=== PATIENT | female | born 1985 | race Caucasian/White ===

== ENCOUNTER → 2023-11-14 | Outpatient (CLI) | payer SELFPAY ==
--- NOTE | 2023-11-14 16:15 | US_ITS ---
STUDY: FIRST TRIMESTER OBSTETRICAL ULTRASOUND REASON FOR EXAM: Female, 37 years old viability and dates LMP: TECHNIQUE: Transvaginal TECHNICAL QUALITY: Adequate. PRIOR ULTRASOUND: None. FINDINGS: There is visualization of a single gestational sac in a normal intrauterine position. The mean sac diameter (MSD) measures 1.26 cm, indicating an estimated gestational age (EGA) of 6 weeks, 1 days. The gestational sac shape is within normal limits. There is a visualized yolk sac. The yolk sac measures 2.7 mm. The placenta is non-visualized. No pole is observed. The estimated gestation age (EGA) by LMP is 8 weeks, 4 days. The estimated date of delivery (ROBIN) by LMP is June 21, 2024. The estimated gestation age (EGA) by US is 6 weeks, 1 days. The estimated date of delivery (ROBIN) by US is July 08, 2024. The uterus measures 9 x 5.4 x 4.5 cm. There is no demonstrated uterine fibroid. The cervix is closed. The right ovary measures 2.5 x 2.5 x 1.5 cm. There is no right ovarian cyst. There is no visualized right adnexal mass or complex lesion. The left ovary measures 2.1 x 1.5 x 1.5 cm. There is no left ovarian cyst. There is no visualized left adnexal mass or complex lesion. There is no fluid in the cul de sac. US/Transvaginal w/Preg US IMPRESSION: Findings which may be consistent with very early intrauterine gestation but no pole observed at this time. No evidence for ectopic Recommend clinical correlation and follow-up studies to assess for interval changes Electronically Signed: Xavier Gutiérrez MD at 17:29 EST ,
[2023-11-14 18:02] LABS: hCG Titer Quant., Serum 17501 mIU/mL (1-3)
== END | disposition home or self-care (01) ==
PROVIDERS: Referring Provider Obstetrics & Gynecology; Visit Provider Obstetrics & Gynecology
DX: Z34.90 Encounter for supervision of normal pregnancy, unspecified, unspecified trimester (principal)
CPT/HCPCS: 36415; 76817; 84702

== ENCOUNTER → 2023-11-21 | Outpatient (CLI) | payer SELFPAY ==
--- NOTE | 2023-11-21 12:51 | US_ITS ---
INDICATION: dating/viability EXAMINATION: Ultrasound US OB Transvaginal TECHNIQUE: Transabdominal and transvaginal (for optimal evaluation of the adnexa) pelvic ultrasound was performed. Grayscale and color Doppler technique with M-mode imaging. COMPARISON: 11/14/2023 LMP: 09.15.2023 (PCOS confounds dating) Beta-hCG: Unknown FINDINGS: UTERUS: Normal in size measuring 9.1 x 4.7 x 4.3 cm. No uterine masses. Cervix is closed.. RIGHT OVARY: Measures 3.4 x 2.9 x 2.5 cm. Normal in appearance. LEFT OVARY: Not visualized. FREE FLUID: None. INTRAUTERINE GESTATIONAL SAC(s) (size/shape): Single. 2.30 cm corresponding to a gestational age of 7 weeks, 2 days. YOLK SAC: Identified POLE: Identified CRL 4.7 mm corresponding to a gestational age of 6 weeks, 3 days. ESTIMATED GESTATION AGE: 6 weeks, 6 days. HEART MOTION: 138 bpm. PLACENTA: Not visualized due to age. SUBCHORIONIC HEMORRHAGE: None. AMNIOTIC FLUID: Qualitatively normal. US/Transvaginal w/Preg US IMPRESSION: * Single live intrauterine . * Estimated gestational age is 6 weeks, 6 days. * No perigestational hemorrhage. Electronically Signed: Robi Silverman MD at 6:19 EST ,
== END | disposition home or self-care (01) ==
PROVIDERS: Referring Provider Obstetrics & Gynecology; Visit Provider Obstetrics & Gynecology
DX: Z34.90 Encounter for supervision of normal pregnancy, unspecified, unspecified trimester (principal)
CPT/HCPCS: 76817

== ENCOUNTER → 2023-12-06 | Outpatient (CLI) | payer OTHER, SELFPAY ==
[2023-12-10 04:07] LABS: Chlamydia By Nucleic Acid AMP Negative (Negative); Gonococcus By Nucleic Acid AMP Negative (Negative)
== END | disposition home or self-care (01) ==
PROVIDERS: Referring Provider Registered Nurse; Visit Provider Registered Nurse
DX: Z34.90 Encounter for supervision of normal pregnancy, unspecified, unspecified trimester (principal)
CPT/HCPCS: 87086; 87088; 87491; 87591

== ENCOUNTER → 2024-01-02 | Outpatient (CLI) | payer OTHER, SELFPAY ==
[2024-01-02 15:41] LABS: Absolute Lymphocyte Count 1.74 X10^3/uL (0.83-4.51); Absolute Neutrophil Count 5.7 X10^3/uL (2.0-7.7); Basophil# 0.03 X10^3/uL; Basophil% 0.4 % (0-1); Eosinophils% 1.2 % (0-5); Hematocrit 39.4 % (37-47); Hemoglobin 12.6 g/dL (12.0-15.0); Lymphocyte # 1.74 X10^3/ul (0.83-4.51); Lymphocyte % 20.9 % (19-41); Mean Corpuscular Hgb 28.3 pg (27.0-32.0); Mean Corpuscular Volume 88.3 fL (81-99); Mean Platelet Vol. 10.1 fl (6.2-12.0); Monocyte% 9.6 % (0-10); NRBC Flagged by Analyzer 0 % (0-5); Neutrophil # 5.65 X10^3/uL (2.7-7.7); Neutrophil % 67.7 % (47-70); Platelet Count 272 K/mm3 (150-450); RBC Distribution Width CV 12.9 % (11.6-14.6); RBC Distribution Width SD 41.3 fl (35.1-43.9); Red Blood Count 4.46 M/mm3 (4.2-5.4); White Blood Count 8.3 K/mm3 (4.4-11.0)
[2024-01-02 17:13] LABS: POSITIVE COUNT NO; POSITIVE DIFFERENTIAL NO; POSITIVE MORPHOLOGY NO
[2024-01-02 17:55] LABS: Hemoglobin A1c 5.1 % (3.8-5.6)
[2024-01-02 17:58] LABS: HIV - WCH Non-Reactive (Nonreactive); Hepatitis B Surface Antigen Non-Reactive (Nonreactive); Hepatitis C Antibody Non-Reactive (Nonreactive); Rubella IgG Reactive (Nonreactive); Syphilis Antibodies Non-reactive
== END | disposition home or self-care (01) ==
LOC: LAB 14:11
PROVIDERS: Referring Provider Registered Nurse; Visit Provider Registered Nurse
DX: Z34.90 Encounter for supervision of normal pregnancy, unspecified, unspecified trimester (principal)
CPT/HCPCS: 83036; 85025; 86703; 86762; 86780; 86803; 86850; 86900; 86901; 87340

== ENCOUNTER → 2024-01-29 | Outpatient (CLI) | payer MEDICAID, SELFPAY | END | disposition home or self-care (01) | PROVIDERS: Referring Provider Nurse Practitioner Women's Health; Visit Provider Nurse Practitioner Women's Health | DX: Z36.9 Encounter for antenatal screening, unspecified (principal) | CPT/HCPCS: 36415 ==

== ENCOUNTER 2024-04-19 16:24 | Emergency (ER) | payer MEDICAID, SELFPAY ==
[2024-04-19 16:24] VITALS: BP 120/79; PULSE 98; RESP 18; TEMP 36.1; O2SAT 99; BMI 42.0
--- NOTE | 2024-04-19 16:44 | ED.RN ---
Discussed sx with OB charge before checking pt into ER. Was told pt had to be seen here first.
--- NOTE | 2024-04-19 17:06 | ED.VIS.GI ---
HPI HPI - GI History of Present Illness Chief Complaint: Abd Pain Informant: patient and spouse/S.O. Abdominal Pain/Flank Pain Onset: Today Timing: Continuous Quality: Cramping Location: Epigastric and LUQ Current Severity: Moderate Maximum Severity: Severe Worsened by: Nothing Nausea/Vomiting/Emesis GI Symptom: Negative for Nausea or Vomiting Diarrhea/Melena/Hematochezia GI Symptom: Negative for Diarrhea, Melena or Hematochezia Associated Symptoms Associated Symptoms: Positive for Frequency (since ); Negative for Dysuria or Hematuria Narrative Narrative: Patient is 28 weeks , she woke up today having some crampy pain in her left upper quadrant below the ribs, it was worse before coming here where she was at work standing, doubled over because of the pain. No nausea or vomiting. Did not radiate into her back. No lower abdominal pain, vaginal bleeding or leakage. States pain was fairly localized. No new urinary symptoms but states that she remembered getting urinary tract infections as a child and for some reason this feels similar although the location may be different she is not sure. She has had a cough for a month or 2 but nonproductive without fevers or chills, she denies any dyspnea. [facility] Medical History Renal stone Home Medications ?Medication ?Instructions ?Recorded ?Last Taken ?Type multivit-min no.71-iron fum 28 cap PO 11/29/23 Unknown History mg-folate no.1 1 mg-dha 300 mg capsule (PNV-Reydon) ondansetron 4 mg disintegrating 4 mg PO Q4H PRN nausea and 01/02/24 Unknown Rx tablet vomiting #60 tabs famotidine 20 mg tablet (Pepcid) 20 mg PO BID #60 tabs 02/28/24 Unknown Rx Allergy/AdvReac Type Severity Reaction Status Date / Time Sulfa (Sulfonamide Allergy Intermediate Shortness Verified 04/19/24 16:24 Antibiotics) of breath Family History Grandfather Cancer maternal pancreatic cancer CVA (cerebral vascular accident) Paternal Grandmother Cancer maternal lung CVA (cerebral vascular accident) Paternal Father Brain tumor (benign) Sister Family history of recurrent miscarriage 7 miscarriages-Lupus Surgical History H/O lithotripsy History of cholecystectomy [place] teeth extracted Social History adopted: No household members: children current occupational status: employed current occupation: Seamstress current occupational exposures/hazards: No pets and animals: No history of recent travel: No sexually active: Yes Smoking Status: Never smoker alcohol intake: current alcohol intake frequency: a few times a month details: Not while substance use type: does not use well-balanced diet: about half the time caffeine: No eating out: rarely or never during the past year weight has: remained stable what type of physical activity do you participate in: none areli/episcopal: Lutheran seatbelt use: always do you feel safe at home: Yes additional social history: BF/FOB [place] work ROS ROS ED Constitutional Constitutional ED: Denies chills or fever(s) Eyes Eyes: Denies change in vision or diplopia ENT ENT ED: Denies rhinorrhea or sore throat Cardiovascular Cardiovascular: Denies chest pain or palpitations Respiratory/Chest Respiratory/Chest: Reports cough; Denies dyspnea or sputum Gastrointestinal Gastrointestinal: Reports abdominal pain; Denies diarrhea, nausea or vomiting Genitourinary Genitourinary ED: Reports urinary frequency; Denies dysuria or hematuria Musculoskeletal Musculoskeletal: Denies back pain or neck pain Integumentary Denies abscess or rash Neurologic Neurologic: Denies headache(s), paresthesias or weakness Psychiatric Psychiatric: Denies suicidal thoughts EXAM Physical Exam Const Vital Signs: 04/19/24 16:24 Temperature 97 F L Temperature Source Temporal Pulse Rate 98 Respiratory Rate 18 Blood Pressure 120/79 Blood Pressure Mean 92 Pulse Ox 99 Oxygen Delivery Method Room Air Positive well nourished and well developed General Appearance ED: well developed and NAD HEENT Reports moist mucous membranes normocephalic and atraumatic Eyes PERRL and EOMs intact bilaterally Neck full ROM and supple Resp normal respiratory effort and clear to auscultation bilaterally Cardio regular rate, regular rhythm and no murmurs GI GI Narrative: Distended above the umbilicus consistent with her trimester . Moderately tender with fairly superficial palpation in the left upper quadrant but not laterally where she is nontender. Also mildly tender in the epigastrium. No other areas of tenderness. Auscultation: normoactive bowel sounds Palpation: soft Back/Spine General Back: CVA tenderness left (Mild) and other FROM Extremity normal to inspection General Extremety ED: Negative for edema, pulses abnormal or tenderness General Extremity: Negative for edema or pulses abnormal Neuro oriented x3, CN's II-XII intact bilaterally and no sensory deficits noted Sensorium / Orientation: awake and alert Motor Exam: strength 5/5 throughout Skin no rashes or lesions noted and no wounds MDM MDM MDM Narrative Medical decision making narrative: Differential includes colonic spasms but she had a bowel movement today and it did not feel better afterwards and that was probably not it, stomach/gastritis, pancreatitis, left lower lobe pneumonia, muscle spasms, or worse, uterine discomfort. However it is pretty focal for the latter. 2 view chest x-ray my interpretation shows no pneumonia radiology in agreement, since she had a cough we did that. The labs are normal. No elevated liver enzymes or signs of pancreatitis. Urine shows some signs of infection but nothing major, and more importantly after giving her Mylanta as she felt better very quickly. Therefore going to send a culture of the urine but I do not think that is the issue here, I think it was just gastritis. She is already taking Pepcid twice daily, I advised her to continue that I do not think I would change any of her medicines. She comfortable with that plan. Nursing obtained heart tones and patient is feeling good movement. She has already had prior cholecystectomy. Lab Data Attestation: I reviewed the patient's lab results. Labs: Laboratory Results - last 24 hr 04/19/24 04/19/24 16:38 17:23 WBC 9.6 RBC 3.58 L Hgb 10.4 L Hct 31.9 L MCV 89.1 MCH 29.1 MCHC 32.6 RDW Std Deviation 45.3 H RDW Coeff of Stevie 14.1 Plt Count 224 MPV 10.0 Immature Gran % (Auto) 0.500 Neut % (Auto) 76.5 H Lymph % (Auto) 14.8 L [place] % (Auto) 7.2 Eos % (Auto) 0.8 Baso % (Auto) 0.2 Absolute Neuts (auto) 7.3 Absolute Lymphs (auto) 1.41 Nucleated RBC % 0 Sodium 139 Potassium 3.4 L Chloride 111 H Carbon Dioxide 21.0 Anion Gap 7 BUN 7 Creatinine 0.59 Estim Creat Clear Calc 140.91 Est GFR (MDRD) Af Amer 147 Est GFR (MDRD) Non-Af 121 BUN/Creatinine Ratio 11.9 Glucose 97 Calcium 8.8 Total Bilirubin 0.20 AST 16 ALT 28 Alkaline Phosphatase 82 Total Protein 6.3 L Albumin 2.4 L Globulin 3.9 Albumin/Globulin Ratio 0.6 L Lipase 71 Urine Color Yellow Urine Clarity Clear Urine pH 6.0 Ur Specific [place] 1.025 Urine Protein 15 H Urine Glucose (UA) Normal Urine Ketones 150 A* Urine Occult Blood Negative Urine Nitrite Negative Urine Bilirubin Negative Urine Urobilinogen Normal Ur Leukocyte Esterase 100 H Urine RBC 0 SEEN Urine WBC 5-10 SEEN Ur Squamous Epith Cells 5-10 SEEN Urine Bacteria 1+ Urine Mucus 0 SEEN Radiography Diagnostic Testing: Clinical Impression(s) from Imaging Studies Chest X-Ray 04/19/24 17:28 IMPRESSION: No radiographic evidence of acute cardiopulmonary disease. Electronically Signed: Didier Machado MD at 17:52 EDT Reading Location ID and State: [facility] / [place] Tel , Service support , Discharge Plan Triage Chief Complaint: Abd Pain ED Provider: Camilo Das Dx/Rx/DC Orders Clinical Impression: Acute gastritis without bleeding, Third trimester Instructions: ED Gastritis (Adult) Prescriptions: No Action PNV-Reydon 28-1-300 mg capsule PO ondansetron 4 mg tablet,disintegrating 4 mg PO Q4H PRN (Reason: nausea and vomiting) Qty: 60 2RF famotidine [Pepcid] 20 mg tablet 20 mg PO BID Qty: 60 6RF Primary Care Provider: Care Physician,No Primary Referrals: Doctor,Your [Non-Staff] - 3-5 Days if not improving (your OB) Print Language: [place] Disposition Disposition: Home, Self Care
[2024-04-19] MEDS: Mag /Aluminum/Simeth WCH UDC 30 ML ORAL.SUSP PO (17:17)
--- NOTE | 2024-04-19 17:28 | RAD_ITS ---
INDICATION: cough, LUQ pain; EXAMINATION/TECHNIQUE: X-RAY - XR Chest 2 Views COMPARISON: None. FINDINGS: LINES/DEVICES: None. LUNGS: No consolidation, edema or effusion. No pneumothorax. MEDIASTINUM AND CARDIOVASCULAR STRUCTURES: Cardiac silhouette not enlarged. Central airways and mediastinal contour are unremarkable. BONES AND SOFT TISSUES: Unremarkable. RAD/Chest PA and Lateral IMPRESSION: No radiographic evidence of acute cardiopulmonary disease. Electronically Signed: Didier Machado MD at 17:52 EDT ,
[2024-04-19 17:30] LABS: Mucous, Urine 0 SEEN /hpf (<or=2+)
[2024-04-19 17:32] LABS: Absolute Lymphocyte Count 1.41 X10^3/uL (0.83-4.51); Absolute Neutrophil Count 7.3 X10^3/uL (2.0-7.7); Basophil# 0.02 X10^3/uL; Basophil% 0.2 % (0-1); Eosinophil# 0.08 X10^3/uL; Eosinophils% 0.8 % (0-5); Hematocrit 31.9 % (37-47); Hemoglobin 10.4 g/dL (12.0-15.0); Lymphocyte # 1.41 X10^3/ul (0.83-4.51); Lymphocyte % 14.8 % (19-41); Mean Corp Hgb Conc 32.6 g/dL (32-36); Mean Corpuscular Hgb 29.1 pg (27.0-32.0); Mean Corpuscular Volume 89.1 fL (81-99); Monocyte# 0.69 X10^3/uL; Monocyte% 7.2 % (0-10); NRBC Flagged by Analyzer 0 % (0-5); Neutrophil % 76.5 % (47-70); Platelet Count 224 K/mm3 (150-450); RBC Distribution Width CV 14.1 % (11.6-14.6); RBC Distribution Width SD 45.3 fl (35.1-43.9); Red Blood Count 3.58 M/mm3 (4.2-5.4); White Blood Count 9.6 K/mm3 (4.4-11.0)
[2024-04-19 17:36] LABS: Color, Urine Yellow (Yellow); Glucose, Dipstick Normal (Normal); Leukocyte Esterase-Dipstick 100 /ul (Negative); Nitrite-Dipstick Negative (Negative); Occult Blood-Urine Negative /ul (Negative); Protein-Dipstick 15 mg/dl (Negative); Specific Gravity, Urine 1.025 (1.002-1.030); Urine Bilirubin Dipstick Negative (Negative); Urine Clarity Clear (Clear); Urine Urobilinogen Normal (Normal)
[2024-04-19 17:48] LABS: Ketone-Dipstick 150 mg/dl (Negative)
[2024-04-19 17:50] LABS: Bacteria 1+ /hpf (None Seen); Red Blood Cells-Urine 0 SEEN /hpf (0-5); Squamous Epithelial Cells - UA 5-10 SEEN /hpf (5-10); White Blood Cells 5-10 SEEN /hpf (0-5)
[2024-04-19 17:56] LABS: ALB/GLOB Ratio 0.6 RATIO (0.9-2.4); AST(SGOT) 16 U/L (15-37); Alanine Aminotransfer ALT/SGPT 28 U/L (13-56); Albumin, Serum 2.4 g/dL (3.2-5.0); Alkaline Phosphatase 82 U/L (45-117); Anion Gap 7 (5-15); BUN 7 mg/dL (7-18); BUN/Creat Ratio 11.9 RATIO (10-20); Calcium,Total 8.8 mg/dL (8.5-10.1); Chloride 111 mmol/L (98-107); Creatinine, Serum 0.59 mg/dL (0.55-1.02); EST Glomerular Filtration Rate 121 mL/min (>60); Est Glom Filt Rate - Afr Amer 147 mL/min (>60); Estimated Creatinine Clearance 140.91 ml/min; Globulin 3.9 g/dL (2.2-4.2); Glucose 97 mg/dL (74-106); Lipase 71 U/L (13-75); Potassium 3.4 mmol/L (3.5-5.1); Protein, Total 6.3 g/dL (6.4-8.2); Sodium Level 139 mmol/L (136-145)
[2024-04-19 18:24] VITALS: BP 107/73; PULSE 83; RESP 16; O2SAT 98
[2024-04-19 18:54] VITALS: BP 107/73; PULSE 83; RESP 16; TEMP 36.2; O2SAT 98
== END 2024-04-19 18:56 | disposition home or self-care (01) ==
PROVIDERS: Emergency Provider Emergency Medicine; Visit Provider Emergency Medicine
DX: O99.613 Diseases of the digestive system complicating pregnancy, third trimester (principal); K29.00 Acute gastritis without bleeding; Z3A.28 28 weeks gestation of pregnancy
CPT/HCPCS: 71046; 80053; 81001; 83690; 85025; 99282; A4216

== ENCOUNTER → 2024-04-20 | Outpatient (CLI) | payer MEDICAID, SELFPAY ==
[2024-04-20 14:52] LABS: Absolute Lymphocyte Count 1.06 X10^3/uL (0.83-4.51); Absolute Neutrophil Count 7.1 X10^3/uL (2.0-7.7); Basophil# 0.02 X10^3/uL; Basophil% 0.2 % (0-1); Eosinophil# 0.06 X10^3/uL; Eosinophils% 0.7 % (0-5); Hematocrit 32.3 % (37-47); Hemoglobin 10.4 g/dL (12.0-15.0); Lymphocyte # 1.06 X10^3/ul (0.83-4.51); Mean Corp Hgb Conc 32.2 g/dL (32-36); Mean Corpuscular Hgb 28.7 pg (27.0-32.0); Mean Corpuscular Volume 89.2 fL (81-99); Mean Platelet Vol. 10.1 fl (6.2-12.0); Monocyte# 0.57 X10^3/uL; Monocyte% 6.5 % (0-10); NRBC Flagged by Analyzer 0 % (0-5); Neutrophil # 7.05 X10^3/uL (2.7-7.7); Neutrophil % 79.8 % (47-70); Platelet Count 239 K/mm3 (150-450); RBC Distribution Width CV 14.2 % (11.6-14.6); Red Blood Count 3.62 M/mm3 (4.2-5.4); White Blood Count 8.8 K/mm3 (4.4-11.0)
[2024-04-20 15:21] LABS: Glucose Challenge Gest 1H 50g 93 mg/dL (70-140)
[2024-04-20 16:03] LABS: HIV - WCH Non-Reactive (Nonreactive); Syphilis Antibodies Non-reactive
== END | disposition home or self-care (01) ==
PROVIDERS: Referring Provider Advanced Practice Midwife; Visit Provider Advanced Practice Midwife
DX: O09.92 Supervision of high risk pregnancy, unspecified, second trimester (principal); Z13.1 Encounter for screening for diabetes mellitus; Z3A.00 Weeks of gestation of pregnancy not specified
CPT/HCPCS: 36415; 82950; 85025; 86703; 86780

== ENCOUNTER 2024-05-18 14:10 | Outpatient (CLI) | payer MEDICAID, SELFPAY ==
[2024-05-18 14:28] VITALS: BP 132/85; PULSE 79
[2024-05-18 14:29] VITALS: RESP 18; TEMP 36.4
[2024-05-18 14:38] VITALS: BMI 42.0
[2024-05-18] MEDS: Lactated Ringers 1,000 ML 999 ML IV (15:05)
[2024-05-18 15:25] LABS: Color, Urine Yellow (Yellow); Glucose, Dipstick Normal (Normal); Ketone-Dipstick Negative (Negative); Leukocyte Esterase-Dipstick 100 /ul (Negative); Nitrite-Dipstick Negative (Negative); Occult Blood-Urine Negative /ul (Negative); Protein-Dipstick Negative (Negative); Specific Gravity, Urine 1.015 (1.002-1.030); Urine Bilirubin Dipstick Negative (Negative); Urine Clarity Sl. Cloudy (Clear); Urine Urobilinogen Normal (Normal)
[2024-05-18] MEDS: Betamethasone/Betamethasone 30 MG/5 ML Vial 12 MG IM (15:53)
[2024-05-18] MEDS: Lactated Ringers 1,000 ML 200 ML IV (16:00)
--- NOTE | 2024-05-18 16:47 | OB.TRI.PN_ITS ---
Progress Notes Date of Service: 05/18/24 Progress Note: Patient presents for triage evaluation secondary to uterine contractions FHT: 140 Moderate variability reactive no decelerations category I tracing [place]: 2-4 minutes Contractions Assessment and plan: no cervical change, UA negative, Reactive NST, reassuring maternal and status, Celestone given. Discussed with Dr Webster and decision to start Procardia 10mg PO q 6 hours. patient discharged to home to follow-up saturday in the office. Pelvic rest until then. See problem list details for additional plan information. Laboratory Studies: Laboratory Tests 05/18/24 Range/Units 15:05 Urine Color Yellow (Yellow) Urine Clarity Sl. Cloudy (Clear) Urine pH 8.0 (5.0 - 8.0) Ur Specific [place] 1.015 (1.002-1.030) Urine Protein Negative (Negative) mg/dl Urine Glucose (UA) Normal (Normal) mg/dl Urine Ketones Negative (Negative) mg/dl Urine Occult Blood Negative (Negative) /ul Urine Nitrite Negative (Negative) Urine Bilirubin Negative (Negative) mg/dL Urine Urobilinogen Normal (Normal) mg/dl Ur Leukocyte Esterase 100 H (Negative) /ul Charges/Coding Multi Select Codes Visit Charges Office Visit/Consults: 56994 OV L3 Est 20min Urinary/Genital Urinary/Genital CPT Codes: 06477-61 non-stress test Interp Assessment & Plan (1) Uterine contractions at greater than 20 weeks of gestation: COMMENT: no cervical change, Celestone, Procardia 10mg q6 hrs, follow up sat. PLAN: celestone x 2 no cervical change Procardia 10 mg q 6 hours Follow up saturday in office (2) Anemia affecting : COMMENT: recheck at 32 weeks and start po iron (3) Hypersensitivity disorder: QUALIFIERS: Encounter type: sequela Qualified Code(s): T78.40XS - Allergy, unspecified, sequela COMMENT: pain sensation with any abdominal touch. Difficult for her to have FHT checks (4) Obesity affecting : QUALIFIERS: Trimester: second trimester Obesity type affecting : unspecified obesity Qualified Code(s): O99.212 - Obesity complicating , second trimester COMMENT: growth at 36 weeks Weekly NSTat 34 wk healthy weight. early hbga1c with nob labs- NEGATIVE (5) History of PCOS: (6) ADHD: QUALIFIERS: Attention deficit-hyperactivity disorder type: unspecified Qualified Code(s): F90.9 - Attention-deficit hyperactivity disorder, unspecified type COMMENT: non medicated. (7) Anxiety: COMMENT: controlled. (8) Advanced maternal age (AMA) in : COMMENT: low risk ntd, carrier and genetic screening. (9) Supervision of high-risk : QUALIFIERS: Trimester: second trimester Qualified Code(s): O09.92 - Supervision of high risk , unspecified, second trimester COMMENT: PRR , ROBIN 07/10/[address] [facility]/LAURA [place] (10) : QUALIFIERS: Weeks of gestation: 32 weeks Qualified Code(s): Z3A.32 - 32 weeks gestation of COMMENT: NIPT low risk, carrier neg. , AFP:negative. nl anatomy needs fu views
[2024-05-18] MEDS: NIFEdipine 10 MG Capsule PO (17:03)
[2024-05-18 17:34] VITALS: BP 115/75; PULSE 90; RESP 18
== END 2024-05-18 17:50 | disposition home or self-care (01) ==
LOC: WPOUT 14:18 → WP 14:19
PROVIDERS: Referring Provider Advanced Practice Midwife; Visit Provider Advanced Practice Midwife
DX: O47.03 False labor before 37 completed weeks of gestation, third trimester (principal); Z3A.32 32 weeks gestation of pregnancy; O99.213 Obesity complicating pregnancy, third trimester; O09.93 Supervision of high risk pregnancy, unspecified, third trimester; O99.013 Anemia complicating pregnancy, third trimester
CPT/HCPCS: 96360; 59025; 59050; 81002; 87086; 87088; 96372; 99221; J7120; G0378; J0702

== ENCOUNTER 2024-05-19 14:57 | Outpatient (CLI) | payer MEDICAID, SELFPAY ==
[2024-05-19 15:12] VITALS: BMI 42.1
[2024-05-19] MEDS: Betamethasone/Betamethasone 30 MG/5 ML Vial 12 MG IM (15:26)
== END 2024-05-19 15:30 | disposition home or self-care (01) ==
LOC: WPOUT 14:59 → WP 15:00
PROVIDERS: Referring Provider Obstetrics & Gynecology; Visit Provider Obstetrics & Gynecology
DX: O47.03 False labor before 37 completed weeks of gestation, third trimester (principal); O99.013 Anemia complicating pregnancy, third trimester; O09.93 Supervision of high risk pregnancy, unspecified, third trimester; O99.213 Obesity complicating pregnancy, third trimester; Z3A.32 32 weeks gestation of pregnancy
CPT/HCPCS: 96372; 99221; G0378; J0702

== ENCOUNTER → 2024-06-15 | Outpatient (CLI) | payer MEDICAID, SELFPAY | END | disposition home or self-care (01) | LOC: LABSPEC 12:01 | PROVIDERS: Referring Provider Obstetrics & Gynecology; Visit Provider Obstetrics & Gynecology | DX: O09.92 Supervision of high risk pregnancy, unspecified, second trimester (principal); Z3A.00 Weeks of gestation of pregnancy not specified | CPT/HCPCS: 87081 ==

== ENCOUNTER 2024-06-19 06:30 | Outpatient (CLI) | payer MEDICAID, SELFPAY ==
[2024-06-19 06:40] VITALS: BMI 43.0
[2024-06-19] MEDS: Lactated Ringers 1,000 ML 125 ML IV (06:45)
[2024-06-19 06:51] VITALS: BP 119/81; PULSE 86; RESP 16; TEMP 36.2; O2SAT 97
[2024-06-19 07:16] LABS: Absolute Lymphocyte Count 1.65 X10^3/uL (0.83-4.51); Absolute Neutrophil Count 5.9 X10^3/uL (2.0-7.7); Basophil# 0.01 X10^3/uL; Basophil% 0.1 % (0-1); Eosinophil# 0.11 X10^3/uL; Eosinophils% 1.3 % (0-5); Hematocrit 31.9 % (37-47); Hemoglobin 10.4 g/dL (12.0-15.0); Lymphocyte # 1.65 X10^3/ul (0.83-4.51); Lymphocyte % 19.4 % (19-41); Mean Corp Hgb Conc 32.6 g/dL (32-36); Mean Corpuscular Hgb 28.9 pg (27.0-32.0); Mean Corpuscular Volume 88.6 fL (81-99); Mean Platelet Vol. 10.3 fl (6.2-12.0); Monocyte# 0.85 X10^3/uL; NRBC Flagged by Analyzer 0 % (0-5); Neutrophil # 5.85 X10^3/uL (2.7-7.7); Neutrophil % 68.8 % (47-70); Platelet Count 207 K/mm3 (150-450); RBC Distribution Width CV 13.9 % (11.6-14.6); RBC Distribution Width SD 44.3 fl (35.1-43.9); White Blood Count 8.5 K/mm3 (4.4-11.0)
--- NOTE | 2024-06-19 07:51 | OB.TRI.HP_ITS ---
HPI - General HPI Narrative JM OSEGUERA, is a 38 y/o @ 37 weeks who presents to L&D for an ECV. She is obese and advance maternal age. Prior to beginning the procedure the risks of distress, placental abruption, and need for urgent section was discussed. A consent form was signed. pre-procedure ultrasound: sho 13, head at the right upper quadrant back facing up and to the left. buttock to the midline, limbs to the right mid quadrant. Maternal Data Information ROBIN Calculator Estimated Delivery Date Method Current WG Current Estimate 07/10/24 Ultrasound #1 37w 0d PFSH PFSH Medical History Renal stone Home Medications ?Medication ?Instructions ?Recorded ?Last Taken ?Type multivit-min no.71-iron fum 28 1 cap PO see provider 11/29/23 06/18/24 06:00 History mg-folate no.1 1 mg-dha 300 mg capsule (PNV-[place]) ondansetron 4 mg disintegrating 4 mg PO Q4H PRN nausea and 01/02/24 Unknown Rx tablet vomiting #60 tabs famotidine 20 mg tablet (Pepcid) 20 mg PO BID #60 tabs 02/28/24 06/18/24 06:00 Rx PNV 153-FA 400 mcg-om3 35 mg-dha 2 tab PO DAILY 05/18/24 05/18/24 08:00 History 25 mg-epa 5 mg-fish oil chew 2 tabs tablet ( Gummies) ferrous sulfate 325 mg (65 mg 325 mg PO BID 05/18/24 06/19/24 06:00 History iron) tablet (Bárbara-Time) nifedipine 10 mg capsule 10 mg PO Q6H 10 days #40 caps 05/18/24 Unknown Rx Allergy/AdvReac Type Severity Reaction Status Date / Time Sulfa (Sulfonamide Allergy Intermediate Shortness Verified 06/19/24 06:47 Antibiotics) of breath Family History Grandfather Cancer maternal pancreatic cancer CVA (cerebral vascular accident) Paternal Grandmother Cancer maternal lung CVA (cerebral vascular accident) Paternal Father Brain tumor (benign) Sister Family history of recurrent miscarriage 7 miscarriages-Lupus Surgical History H/O lithotripsy History of cholecystectomy [place] teeth extracted Social History adopted: No household members: children current occupational status: employed current occupation: Seamstress current occupational exposures/hazards: No pets and animals: No history of recent travel: No sexually active: Yes Smoking Status: Never smoker alcohol intake: current alcohol intake frequency: a few times a month details: Not while substance use type: does not use well-balanced diet: about half the time caffeine: No eating out: rarely or never during the past year weight has: remained stable what type of physical activity do you participate in: none areli/hinduism: Rastafari seatbelt use: always do you feel safe at home: Yes additional social history: BF/FOB [place]- [place] work History 1 Elective abortions Hx Para 0 Spontaneous abortions Hx # Term Pregnancies Ectopic pregnancies Hx # Pregnancies Multiple births # of living children Visit Details Expected Delivery Route/Plan Labor Preferences- CB/BF classes: declined, watched on [employer] labor support person: [] labor intervention preferences: open to anything, pain management options preferred: epidural, open to massage and guided breathing cut cord/dad catch: yes maybe catch : yes PP control planned: [] discussed possible routes of delivery and associated risks: [] special requests: [] Plans Covid status: [] Flu vaccine: [] Tdap vaccine: given Rhogam: na LARC form signed: declined movement and labor precautions reviewed. Problem list reviewed and updated with the most current plan of care details and appropriate orders placed. Relevant counseling for the gestational age provided. Continue routine care and follow up unless otherwise noted in visit notes/problem list details OB Flowsheet Initial Weight: 214 lb Date -?-?-?-?-?-?-?-?-?-?-?-?- EGA Weight BP Urine Prot -?-?-?-?-?-?-?-?-?-?-?-?- Glucose FHR FuHt Pres Dilation -?-?-?-?-?-?-?-?-?-?-?-?- Effaced St Visit Note 12/06/23 -?-?-?-?-?-?-?-?-?-?-?-?- 9w 0d 214 lb 2 oz (+2 oz) 113/87 -?-?-?-?-?-?-?-?-?-?-?-?- 160 -?-?-?-?-?-?-?-?-?-?-?-?- LC-CRL con with LMP. desires carrier/genetic screening. LC- formal 1st trimester us. crl con with this today. desires carrier/genetic screening. 01/02/24 -?-?-?-?-?-?-?-?-?-?-?-?- 12w 6d 213 lb 6 oz (-10 oz) 106/72 Negative -?-?-?-?-?-?-?-?-?-?-?-?- Negative 160 -?-?-?-?-?-?-?-?-?-?-?-?- MH-No VB. Сергей wu, bassem sent. Br US confirm live IUP, FHT. 01/29/24 -?-?-?-?-?-?-?-?-?-?-?-?- 16w 5d 214 lb 2 oz (+2 oz) 112/70 -?-?-?-?-?-?-?-?-?-?-?-?- 157 -?-?-?-?-?-?-?-?-?-?-?-?- MH-NO VB. Nausea imporve. Still w/heartburn. Meds reviewed. AFP today 02/28/24 -?-?-?-?-?-?-?-?-?-?-?-?- 21w 0d 216 lb 6 oz (+2 lb 6 oz) 113/76 Negative -?-?-?-?-?-?-?-?-?-?-?-?- Negative 150 -?-?-?-?-?-?-?-?-?-?-?-?- SM- no vb lof go od fm no regular ctx discussed some congestion in the middle of the night, ordered pepcid for heartburn 03/30/24 -?-?-?-?-?-?-?-?-?-?-?-?- 25w 3d 220 lb (+6 lb) 109/76 Negative -?-?-?-?-?-?-?-?-?-?-?-?- Negative 157 26 -?-?-?-?-?-?-?-?-?-?-?-?- KW- no vb/lof/ct x. good fm. 28 week labs discussed. 04/20/24 -?-?-?-?-?-?-?-?-?-?-?-?- 28w 3d 219 lb 8 oz (+5 lb 8 oz) 111/74 Negative -?-?-?-?-?-?-?-?-?-?-?-?- Negative 150 29 -?-?-?-?-?-?-?-?-?-?-?-?- JV- glucola done today. results pending. Tdap today. mild anemia. recommend OTC slow FE 05/04/24 -?-?-?-?-?-?-?-?-?-?-?-?- 30w 3d 219 lb (+5 lb) 112/74 Negative -?-?-?-?-?-?-?-?-?-?-?-?- Negative 130 32 -?-?-?-?-?-?-?-?-?-?-?-?- SM- no vb lof go od fm no regular ctx 05/18/24 -?-?-?-?-?-?-?-?-?-?-?-?- 32w 3d 223 lb 8 oz (+9 lb 8 oz) Negative -?-?-?-?-?-?-?-?-?-?-?-?- Negative 140 34 0 -?-?-?-?-?-?-?-?-?-?-?-?- KW- no vb/lof. c deven into office tearful and complaining of abd pain. NST shows regular ctx. to WP to rule out labor 05/22/24 -?-?-?-?-?-?-?-?-?-?-?-?- 33w 0d 221 lb (+7 lb) 106/76 Negative -?-?-?-?-?-?-?-?-?-?-?-?- Negative 140 34 -?-?-?-?-?-?-?-?-?-?-?-?- SM- no vb lof go od fm no regualr ctx 06/01/24 -?-?-?-?-?-?-?-?-?-?-?-?- 34w 3d 221 lb (+7 lb) 109/74 -?-?-?-?-?-?-?-?-?-?-?-?- 130 34 0 -?-?-?-?-?-?-?-?-?-?-?-?- JV- nst reactive . had 4 contractions but did not feel them. PTL precautions discussed. LAURA has diarrhea for over a week. will see GI this week and is being care for by his mother only to limit contact with him. JV- nst reactive. had 4 cont ractions but did not feel them. PTL precautions discussed. FOKumar has diarrhea for over a week. will see GI this week and is being care for by his mother only to limit contact with him. discussed possible tubal at delivery. title 19 today. 06/08/24 -?-?-?-?-?-?-?-?-?-?-?-?- 35w 3d 223 lb (+9 lb) 108/73 Negative -?-?-?-?-?-?-?-?-?-?-?-?- Negative 140 -?-?-?-?-?-?-?-?-?-?-?-?- MH-NST only reac tive. No CTX 06/15/24 -?-?-?-?-?-?-?-?-?-?-?-?- 36w 3d 225 lb (+11 lb) 109/74 Negative -?-?-?-?-?-?-?-?-?-?-?-?- Negative 135 37 Breech 0 -?-?-?-?-?-?-?-?-?-?-?-?- JV- reactive nST . pt prefers to try a version pending growth scan today. will wait for results then schedule. ROS Constitutional Constitutional: Reports systems reviewed and no addt'l complaints, except as documented Gastrointestinal Gastrointestinal: Denies bloating, constipation, cramping, diarrhea, nausea or vomiting Genitourinary Genitourinary: Reports other Details: Denies vaginal odor, vaginal bleeding, or vaginal discharge ; Denies difficulty urinating or flank pain Physical Exam Const alert, oriented x3, no apparent distress and well nourished General Appearance: anxious HEENT normocephalic Resp normal respiratory effort and normal air movement GI normal to inspection, nondistended, normoactive bowel sounds and soft to palpation GI Narrative: upon application of the gel on her abdomen and rylee's maneuver, the patient started crying and stated that she could not proceed with the procedure due to tenderness of her abdomen that has been ongoing since childhood. She states I just have a sensitive abdomen through tears. At this point the procedure was aborted. Inspection: gravid no CVA tenderness Extremity normal to inspection General Extremity: edema bilateral (trace ) NST FHR Rate Baby A Baseline: 140 Variability:: Moderate Accelerations:: 15 x 15 Decelerations:: None NST Reactive:: Yes FHR Category:: Category I Assessment & Plan (1) Breech presentation: (2) Anemia affecting : QUALIFIERS: Trimester: third trimester Qualified Code(s): O99.013 - Anemia complicating , third trimester COMMENT: recheck at 32 weeks and start po iron (3) Hypersensitivity disorder: QUALIFIERS: Encounter type: sequela Qualified Code(s): T78.40XS - Allergy, unspecified, sequela COMMENT: pain sensation with any abdominal touch. Difficult for her to have FHT checks (4) Obesity affecting : QUALIFIERS: Trimester: second trimester Obesity type affecting : unspecified obesity Qualified Code(s): O99.212 - Obesity complicating , second trimester COMMENT: growth at 36 weeks(EFW 34%, AC 54%) Weekly NSTat 34 wk healthy weight. early hbga1c with nob labs- NEGATIVE (5) History of PCOS: (6) ADHD: QUALIFIERS: Attention deficit-hyperactivity disorder type: unspecified Qualified Code(s): F90.9 - Attention-deficit hyperactivity disorder, unspecified type COMMENT: non medicated. (7) Anxiety: COMMENT: controlled. (8) Advanced maternal age (AMA) in : COMMENT: low risk ntd, carrier and genetic screening. (9) Supervision of high-risk : QUALIFIERS: Trimester: second trimester Qualified Code(s): O09.92 - Supervision of high risk , unspecified, second trimester COMMENT: PRR , ROBIN 07/10/24 girl [facility]/LAURA [place] (10) : QUALIFIERS: Weeks of gestation: 36 weeks Qualified Code(s): Z3A.36 - 36 weeks gestation of COMMENT: NIPT low risk, carrier neg. , AFP:negative. nl anatomy needs fu views PLAN: Plan unable to perform version due to sensitivity. plan for primary section July 03 7 am Charges/Coding Multi Select Codes Visit Charges Office Visit/Consults: 05786 OV L3 Est 20min Urinary/Genital Urinary/Genital CPT Codes: 25705-41 non-stress test Interp
[2024-06-19 09:15] LABS: Syphilis Antibodies Non-reactive
== END 2024-06-19 08:07 | disposition home or self-care (01) ==
LOC: WPOUT 06:38 → WP 06:38
PROVIDERS: Anesthesiology; Referring Provider Obstetrics & Gynecology; Visit Provider Obstetrics & Gynecology
DX: O32.1XX0 Maternal care for breech presentation, not applicable or unspecified (principal); O09.513 Supervision of elderly primigravida, third trimester; O99.213 Obesity complicating pregnancy, third trimester; O99.013 Anemia complicating pregnancy, third trimester; O99.891 Other specified diseases and conditions complicating pregnancy; R20.8 Other disturbances of skin sensation; Z3A.36 36 weeks gestation of pregnancy
CPT/HCPCS: 96360; 59025; 76815; 85025; 86780; 86850; 86900; 86901; J7120

== ENCOUNTER 2024-07-03 05:26 | Inpatient (IN) | payer MEDICAID, SELFPAY ==
[2024-07-03] VITALS (24 sets, daily range): BP systolic 101–152; BP diastolic 58–94; PULSE 61–104; RESP 14–21; TEMP 35.6–36.3; O2SAT 96–100; BMI 42.0
[2024-07-03] MEDS: Lactated Ringers 1,000 ML 999 ML IV (05:45)
[2024-07-03 06:17] LABS: Absolute Lymphocyte Count 1.47 X10^3/uL (0.83-4.51); Absolute Neutrophil Count 5.9 X10^3/uL (2.0-7.7); Basophil# 0.03 X10^3/uL; Basophil% 0.4 % (0-1); Eosinophil# 0.07 X10^3/uL; Eosinophils% 0.9 % (0-5); Lymphocyte # 1.47 X10^3/ul (0.83-4.51); Lymphocyte % 17.9 % (19-41); Mean Corp Hgb Conc 32.3 g/dL (32-36); Mean Corpuscular Hgb 28.6 pg (27.0-32.0); Mean Corpuscular Volume 88.6 fL (81-99); Mean Platelet Vol. 10.9 fl (6.2-12.0); Monocyte# 0.74 X10^3/uL; NRBC Flagged by Analyzer 0 % (0-5); Neutrophil # 5.85 X10^3/uL (2.7-7.7); Neutrophil % 71.1 % (47-70); Platelet Count 194 K/mm3 (150-450); RBC Distribution Width CV 13.9 % (11.6-14.6); RBC Distribution Width SD 44.1 fl (35.1-43.9); White Blood Count 8.2 K/mm3 (4.4-11.0)
[2024-07-03] MEDS: Lactated Ringers 1,000 ML 150 ML IV (06:53)
[2024-07-03] MEDS: Acetaminophen 500 MG Tablet 1000 MG PO ×3 (06:54→18:47)
[2024-07-03] MEDS: Sodium Citrate/Citric Acid 30 ML UDC PO (06:54)
--- NOTE | 2024-07-03 07:15 | HP.PCM.OB_ITS ---
HPI - General General Date of Admission: 07/03/24 HPI Narrative JM OSEGUERA, is a 38 y/o @ 39 weeks who presents to L&D for a primary section for breech presentation. An attempt was made 2 weeks ago to perform a version, however patient was unable to tolerate even light touch to her abdomen and the procedure was aborted before it began. Maternal Data Information ROBIN Calculator Estimated Delivery Date Method Current WG Current Estimate 07/10/24 Ultrasound #1 39w 0d PFSH PFS Medical History (Updated 07/03/24 @ 05:35 by Shena Smith) Anxiety Renal stone Home Medications ?Medication ?Instructions ?Recorded ?Last Taken ?Type famotidine 20 mg tablet (Pepcid) 20 mg PO BID #60 tabs 02/28/24 06/18/24 06:00 Rx PNV 153-FA 400 mcg-om3 35 mg-dha 2 tab PO DAILY 05/18/24 05/18/24 08:00 History 25 mg-epa 5 mg-fish oil chew 2 tabs tablet ( Gummies) ferrous sulfate 325 mg (65 mg 325 mg PO BID anemia 05/18/24 06/19/24 06:00 History iron) tablet (Bárbara-Time) Allergy/AdvReac Type Severity Reaction Status Date / Time Sulfa (Sulfonamide Allergy Intermediate Shortness Verified 07/03/24 05:51 Antibiotics) of breath Family History Grandfather Cancer maternal pancreatic cancer CVA (cerebral vascular accident) Paternal Grandmother Cancer maternal lung CVA (cerebral vascular accident) Paternal Father Brain tumor (benign) Sister Family history of recurrent miscarriage 7 miscarriages-Lupus Surgical History (Updated 07/03/24 @ 05:35 by Shena Smith) History of surgery H/O lithotripsy History of cholecystectomy [place] teeth extracted Social History adopted: No household members: children current occupational status: employed current occupation: Seamstress current occupational exposures/hazards: No pets and animals: No history of recent travel: No sexually active: Yes Smoking Status: Never smoker alcohol intake: current alcohol intake frequency: a few times a month details: Not while substance use type: does not use well-balanced diet: about half the time caffeine: No eating out: rarely or never during the past year weight has: remained stable what type of physical activity do you participate in: none areli/gnosticism: Jehovah'S Witness seatbelt use: always do you feel safe at home: Yes additional social history: BF/FOB [place] work History 1 Elective abortions Hx Para 0 Spontaneous abortions Hx # Term Pregnancies Ectopic pregnancies Hx # Pregnancies Multiple births # of living children Visit Details Expected Delivery Route/Plan Labor Preferences- CB/BF classes: declined, watched on [employer] labor support person: [] labor intervention preferences: open to anything, pain management options preferred: epidural, open to massage and guided breathing cut cord/dad catch: yes maybe catch : yes PP control planned: [] discussed possible routes of delivery and associated risks: [] special requests: [] Plans Covid status: [] Flu vaccine: [] Tdap vaccine: given Rhogam: na LARC form signed: declined movement and labor precautions reviewed. Problem list reviewed and updated with the most current plan of care details and appropriate orders placed. Relevant counseling for the gestational age provided. Continue routine care and follow up unless otherwise noted in visit notes/problem list details OB Flowsheet Initial Weight: 214 lb Date -?-?-?-?-?-?-?-?-?-?-?-?- EGA Weight BP Urine Prot -?-?-?-?-?-?-?-?-?-?-?-?- Glucose FHR FuHt Pres Dilation -?-?-?-?-?-?-?-?-?-?-?-?- Effaced St Visit Note 12/06/23 -?-?-?-?-?-?-?-?-?-?-?-?- 9w 0d 214 lb 2 oz (+2 oz) 113/87 -?-?-?-?-?-?-?-?-?-?-?-?- 160 -?-?-?-?-?-?-?-?-?-?-?--?- LC-CRL con with LMP. desires carrier/genetic screening. LC- formal 1st trimester us. crl con with this today. desires carrier/genetic screening. 01/02/24 -?--?-?-?-?-?-?-?-?-?-?-?- 12w 6d 213 lb 6 oz (-10 oz) 106/72 Negative -?-?-?-?-?-?-?-?-?-?-?-?- Negative 160 -?-?-?-?-?-?-?-?-?-?-?-?- MH-No VB. Nause a bryce, bassem sent. Br US confirm live IUP, FHT. 01/29/24 -?-?-?-?-?-?-?-?-?-?-?-?- 16w 5d 214 lb 2 oz (+2 oz) 112/70 -?-?-?-?-?-?-?-?-?-?-?-?- 157 -?-?-?-?-?-?-?-?-?-?-?-?- MH-NO VB. Nausea imporve. Still w/heartburn. Meds reviewed. AFP today 02/28/24 -?-?-?-?-?-?-?-?-?-?-?-?- 21w 0d 216 lb 6 oz (+2 lb 6 oz) 113/76 Negative -?-?-?-?-?-?-?-?-?-?-?-?- Negative 150 -?-?-?-?--?-?-?-?-?-?-?-?- SM- no vb lof go od fm no regular ctx discussed some congestion in the middle of the night, ordered pepcid for heartburn 03/30/24 -?-?-?-?-?-?-?-?-?-?-?-?- 25w 3d 220 lb (+6 lb) 109/76 Negative -?-?-?-?-?-?-?-?-?-?-?-?- Negative 157 26 -?-?-?-?-?-?-?-?-?-?-?-?- KW- no vb/lof/ct x. good fm. 28 week labs discussed. 04/20/24 -?-?-?-?-?-?-?-?-?-?-?-?- 28w 3d 219 lb 8 oz (+5 lb 8 oz) 111/74 Negative -?-?-?-?-?-?-?-?--?-?-?-?- Negative 150 29 -?-?-?-?-?-?-?-?-?-?-?-?- JV- glucola done today. results pending. Tdap today. mild anemia. recommend OTC slow FE 05/04/24 -?-?-?-?-?-?-?-?-?-?-?-?- 30w 3d 219 lb (+5 lb) 112/74 Negative -?-?-?-?-?-?-?-?-?-?-?-?- Negative 130 32 -?-?-?-?-?-?-?-?-?-?--?-?- SM- no vb lof go od fm no regular ctx 05/18/24 -?-?-?-?-?-?-?-?-?-?-?-?- 32w 3d 223 lb 8 oz (+9 lb 8 oz) Negative -?-?-?-?-?-?-?-?-?-?-?-?- Negative 140 34 0 -?-?-?-?-?-?-?-?-?-?-?-?- KW- no vb/lof. c deven into office tearful and complaining of abd pain. NST shows regular ctx. to WP to rule out labor 05/22/24 -?-?-?-?-?-?-?-?-?-?-?-?- 33w 0d 221 lb (+7 lb) 106/76 Negative -?-?-?-?-?-?-?-?-?-?-?-?- Negative 140 34 -?-?-?-?-?-?-?-?-?-?-?-?- SM- no vb lof go od fm no regualr ctx 06/01/24 -?-?-?-?-?-?-?-?-?-?-?-?- 34w 3d 221 lb (+7 lb) 109/74 -?-?-?-?-?-?-?-?-?-?-?-?- 130 34 0 -?-?-?-?-?-?-?-?-?-?-?-?- JV- nst reactive . had 4 contractions but did not feel them. PTL precautions discussed. FOKumar has diarrhea for over a week. will see GI this week and is being care for by his mother only to limit contact with him. JV- nst reactive. had 4 cont ractions but did not feel them. PTL precautions discussed. FOKumar has diarrhea for over a week. will see GI this week and is being care for by his mother only to limit contact with him. discussed possible tubal at delivery. title 19 today. 06/08/24 -?-?-?-?-?-?-?-?-?-?-?-?- 35w 3d 223 lb (+9 lb) 108/73 Negative -?-?-?-?-?-?-?-?-?-?-?-?- Negative 140 -?-?-?-?-?-?-?-?-?-?-?-?- MH-NST only reac tive. No CTX 06/15/24 -?-?-?-?-?-?-?-?-?-?-?-?- 36w 3d 225 lb (+11 lb) 109/74 Negative -?-?-?-?-?-?-?-?-?-?-?-?- Negative 135 37 Breech 0 -?-?-?-?-?-?-?-?-?-?-?-?- JV- reactive nST . pt prefers to try a version pending growth scan today. will wait for results then schedule. 06/25/24 -?-?-?-?-?-?-?-?-?-?-?-?- 37w 6d 227 lb (+13 lb) 120/84 Negative -?-?-?-?-?-?-?-?-?-?-?-?- Negative 140 Breech -?-?-?-?-?-?-?-?-?-?-?-?- JV- nst reactive . consent for surgery signed today 07/02/24 -?-?-?-?-?-?-?-?-?-?-?-?- 38w 6d 228 lb (+14 lb) 120/76 120/76 Negative -?-?-?-?-?-?-?-?-?-?-?-?- Negative 120 Breech -?-?-?-?-?-?-?-?-?-?-?-?- SM- no vb lof so me initial dcec fm but now good fm no regular ctx ROS Constitutional Constitutional: Denies change in weight, fatigue, fever(s), headache(s), poor appetite or weakness Eyes Eyes: Denies blurry vision, change in vision, seeing flashes or spots in vision ENT HEENT: Denies dizziness, headache(s), loss taste/smell or sore throat Cardiovascular Cardiovascular: Denies chest pain, dizziness, dyspnea, irregular heart rhythm, leg edema, palpitations, rapid heart rate or vomiting Respiratory/Chest Respiratory/Chest: Denies chest tightness, cough, dyspnea or breast pain Gastrointestinal Gastrointestinal: Denies abdominal pain, anorexia, constipation, cramping, diarr hea, hemorrhoids, vomiting or weight changes Genitourinary Genitourinary: Denies dysuria, flank pain, genital lesions, genital pain, urinary frequency or urinary urgency Musculoskeletal Musculoskeletal: Denies back pain, difficulty walking, joint pain, limited range of motion, muscle cramps or numbness Integumentary Integumentary: Denies lesions or unusual bruising Neurologic Neurologic: Denies abnormal movements, abnormal speech, dizziness, numbness, seizure-like activity or syncope Psychiatric Psychiatric: Denies anxiety, behavioral changes, change in appetite, change in libido, cognitive impairment, confusion, depression, difficulty concentrating, hallucinations or suicidal thoughts Endocrine Endocrinology: Denies excessive sweating, polydipsia or polyuria Hematologic/Lymphatic Hematologic/Lymphatic: Denies easy bleeding, easy bruising or lymphadenopathy Allergic/Immunologic Allergic/Immunologic: Denies itchy eyes, lip swelling, seasonal rhinorrhea, rhinitis, throat swelling, tongue swelling, eczemia, wheezing or asthma Vital Signs Vital Signs Vital Signs: 07/03/24 05:37 07/03/24 05:37 07/03/24 05:37 Temperature Temperature Source Pulse Rate 97 102 H Respiratory Rate Blood Pressure 152/89 H Blood Pressure Mean BP Systolic 152 BP Diastolic 89 Blood Pressure Source Blood Pressure Position Blood Pressure Location Pulse Ox Oxygen Delivery Method 07/03/24 05:37 07/03/24 06:05 Temperature 97.2 F L Temperature Source Temporal Pulse Rate 104 H Respiratory Rate 16 Blood Pressure 152/89 H Blood Pressure Mean 110 BP Systolic BP Diastolic Blood Pressure Source Monitor Blood Pressure Position Semi-Fowlers Blood Pressure Location Right Arm Pulse Ox 99 99 Oxygen Delivery Method Room Air Weight Weight: 229 lb 8.019 oz Body Mass Index (BMI) 42.0 Physical Exam Const alert, oriented x3, no apparent distress and healthy appearing General Appearance: cooperative; Negative for anxious HEENT normocephalic Face and Sinus: normal facial exam Eyes EOMs intact bilaterally and no scleral icterus General Eye: normal appearance of both eyes Neck full ROM and supple Lymph Lymphatic: no lymphadenopathy noted Chest Chest: abnormal inspection of the chest Resp normal respiratory effort Effort and Inspection: able to speak in complete sentences Cardio regular rate GI soft to palpation and non-tender Inspection: gravid Palpation: soft; Negative for tender external exam normal Back/Spine no CVA tenderness Extremity normal to inspection, full ROM and no clubbing, cyanosis or edema General Extremity: Negative for calf tenderness or edema Skin Lesions: no lesions Rashes: no rashes Psych mental status grossly normal Labs Labs Labs: Blood Type O POSITIVE Antibody Screen NEGATIVE Hct 31.0 % (37-47) L Hgb 10.0 g/dL (12.0-15.0) L Obstetrics Ultrasound Syphilis Total Ab Non-reactive Rubella IgG Antibody Reactive (Nonreactive) Hep Bs Antigen Non-Reactive (Nonreactive) Hepatitis C Antibody Non-Reactive (Nonreactive) Chlamydia DNA (MAHESH) Negative (Negative) N.gonorrhoeae DNA (MAHESH) Negative (Negative) HIV 1&2 Antibody Non-Reactive (Nonreactive) Glucose 1 Hr 50 gm 93 mg/dL (70-140) Miscellaneous Test Assessment & Plan (1) Breech presentation: COMMENT: Primary section scheduled 07/03 @ 7:10 with JV (2) Anemia affecting : QUALIFIERS: Trimester: third trimester Qualified Code(s): O99.013 - Anemia complicating , third trimester COMMENT: recheck at 32 weeks and start po iron (3) Hypersensitivity disorder: QUALIFIERS: Encounter type: sequela Qualified Code(s): T78.40XS - Allergy, unspecified, sequela COMMENT: pain sensation with any abdominal touch. Difficult for her to have FHT checks (4) Advanced maternal age (AMA) in : COMMENT: low risk ntd, carrier and genetic screening. (5) Supervision of high-risk : QUALIFIERS: Trimester: second trimester Qualified Code(s): O09.92 - Supervision of high risk , unspecified, second trimester COMMENT: PRR , ROBIN 07/10/24 girl [facility]/FOB [place] (6) : QUALIFIERS: Weeks of gestation: 37 weeks Qualified Code(s): Z3A .37 - 37 weeks gestation of COMMENT: NIPT low risk, carrier neg. , AFP:negative. nl anatomy needs fu views PLAN: Plan After discussing the patient's diagnosis and treatment plan options, patient wishes to proceed with surgical management. I have discussed with the patient the risks, benefits, and alternatives of the procedure which include but are not limited to risks of anesthesia, bleeding, infection, possible damage to bowel, bladder, or surrounding vasculature which could lead to additional surgery to evaluate any complications. Patient agrees to procedure and wishes to proceed. ACOG/uptodate references given for additional information regarding procedure.
--- NOTE | 2024-07-03 07:19 | DCINST_ITS ---
Discharge Instructions Diet Discharge Diet: No restrictions Activity Discharge Activity: May Not Drive (for 2 weeks or while taking narcotic pain medications.), May Shower and May Take a Tub Bath (in 7 days.) May resume sexual activity in: 4-6 weeks Weight Bearing Status: Full weight bearing Lifting Restrictions: 20 pounds Dressing / Incision Call your doctor if your incision/area has: Continuous Slow Oozing, Sudden Increased Bleeding, Increased Pain/ Swelling, Increased Redness and Foul Smelling Discharge Call your doctor if you observe: Fever of 101 or Higher and Using more than 1 pad per hour Suture Line Care: Avoid Pulling/Pushing and Avoid Pinching/Bending Cleanse incision/area with: Soap & Water and Keep Dressing Clean & Dry Follow Up Care Please Follow Up With: Monica Webster DO When: Call [phone] to make an appointment for an incision check in 1-2 weeks. Test Results: Test results from this visit will be discussed in further detail at your follow- up appointment, if applicable. Discharge Plan Admission Admit Date/Time: 07/03/24 05:26 Primary Reason for Your Visit: Attending Provider: Monica Webster Primary Care Provider: Drew Lester,Danyelle Primary Discharge Orders/Prescriptions Prescriptions: New ibuprofen 800 mg tablet 800 mg PO Q8H PRN (Reason: pain) Qty: 30 0RF oxycodone-acetaminophen [Percocet] 5-325 mg tablet 1 tab PO Q4H PRN (Reason: pain) 7 Days Qty: 20 0RF Rx Instructions: 1-2 tabs q 4 hrs as needed for pain Continued famotidine [Pepcid] 20 mg tablet 20 mg PO BID Qty: 60 6RF Gummies 400 mcg-35 mg- 25 mg-5 mg tablet,chewable 2 tab PO DAILY ferrous sulfate [Bárbara-Time] 325 mg (65 mg iron) tablet 325 mg PO BID Referrals / Follow Up: Care Physician,Danyelle Primary [Primary Care Provider] - Disposition Disposition (needs filled in before D/C Order can be placed): Home, Self Care
[2024-07-03] MEDS: Cefazolin 2 GM in Syringe IV (07:30)
[2024-07-03] MEDS: Oxytocin 15 Units/NS 250ml 15 UNITS/250 ML IV.SOLN 83 UNITS IV (08:38)
[2024-07-03 08:52] LABS: Syphilis Antibodies Non-reactive
[2024-07-03] MEDS: Ketorolac 30 MG/ML Syringe IV ×3 (09:18→21:50)
--- NOTE | 2024-07-03 09:37 | EX.PCM.OBRPT ---
Assessment & Plan (1) Breech presentation: COMMENT: Primary section scheduled 07/03 @ 7:10 with JV (2) Anemia affecting : QUALIFIERS: Trimester: third trimester Qualified Code(s): O99.013 - Anemia complicating , third trimester COMMENT: recheck at 32 weeks and start po iron (3) Hypersensitivity disorder: QUALIFIERS: Encounter type: sequela Qualified Code(s): T78.40XS - Allergy, unspecified, sequela COMMENT: pain sensation with any abdominal touch. Difficult for her to have FHT checks (4) Obesity affecting : QUALIFIERS: Trimester: second trimester Obesity type affecting : unspecified obesity Qualified Code(s): O99.212 - Obesity complicating , second trimester COMMENT: growth at 36 weeks(EFW 34%, AC 54%) Weekly NSTat 34 wk healthy weight. early hbga1c with nob labs- NEGATIVE (5) History of PCOS: (6) ADHD: QUALIFIERS: Attention deficit-hyperactivity disorder type: unspecified Qualified Code(s): F90.9 - Attention-deficit hyperactivity disorder, unspecified type COMMENT: non medicated. (7) Anxiety: COMMENT: controlled. (8) Advanced maternal age (AMA) in : COMMENT: low risk ntd, carrier and genetic screening. (9) Supervision of high-risk : QUALIFIERS: Trimester: second trimester Qualified Code(s): O09.92 - Supervision of high risk , unspecified, second trimester COMMENT: PRR , ROBIN 07/10/24 girl [place]/FOB [place] Maternal Data Information ROBIN Calculator Estimated Delivery Date Method Current WG Current Estimate 07/10/24 Ultrasound #1 39w 0d Final ROBIN Source: US <20 weeks Details Operative Information Date of Procedure: 07/03/24 Pre-Operative Diagnosis: 38 y/o @ 39 weeks 0 days, breech presentation Post-Operative Diagnosis: 38 y/o @ 39 weeks 0 days, breech presentation Classification: Scheduled Procedure Type: low transverse vp ancillary #1: Veronique Abbott Type of Anesthesia: Spinal Antibiotic Given: Ancef 3 grams IV x1 Drain: [place] to straight drain Estimated Blood Loss: 500cc Procedure Start Time: 07:49 Procedure Stop Time: 08:21 Time of Delivery: 07:54 Findings Description of Procedure: The patient was brought to the operating room, spinal anesthesia was found to be adequate. She was prepped and draped in the normal sterile fashion and was placed in a dorsal supine position with a leftward tilt. Pfannenstiel skin incision was made with a scalpel and carried through to the underlying layers. The fascia was nicked in the midline and extended laterally using Denis scissors. The anterior aspect of the fascia was grasped with Sienna clamps and the underlying rectus muscles dissected off using the Metzenbaum scissors. The rectus muscles were in the midline. Peritoneum was entered sharply. The uterus was identified and a bladder blade was inserted into the abdomen. Bladder flap was created off the uterus using Metzenbaum scissors. A transverse incision was made with a scalpel and extended laterally manually. The 's feet were first to present and were gently grasped and guided out of the uterine incision. The legs and torso followed. The anterior shoulder was carefully swept across the chest. The was rotated to the opposite side and opposite arm was swept down and over the chest. The head was delivered with the help of my assistant professor nurse education using fundal pressure and also a finger in the mouth to flex the head. The mouth and nares were bulb suctioned. After a 30 second delay the cord was clamped and cut. The end was handed off to the awaiting securities counselor for routine assessment. Placenta was delivered manually without difficulty but was noted to be bilobed and sent for pathology analysis. The uterus was exteriorized and cleared of all clots and debris. Incision was closed with an 0 Vicryl suture in a running locked fashion. Second layer of 1-0 monocryl suture was used in imbricating manner to create excellent closure and hemostasis. The uterus was returned to the abdomen. The gutters were cleared of all clots and debris. The peritoneum was closed in a pursestring pattern using a 3-0 Vicryl suture. This muscle was reapproximated with a 3-0 Vicryl. The fascia was closed with a stratafix suture. Subcutaneous tissue layer was irrigated then closed using a plain gut suture. The skin was closed with a 4-0 Monocryl subcuticular stitch. The skin was also sealed with surgical glue. The patient tolerated the procedure well sponge lap and needle counts were correct at each tissue closure plane and the patient is now being brought to the recovery room in stable condition. The assistant professor nurse education helped with retraction, suction, and suture cutting. She also helped with fundal pressure to assist with the delivery of the infant. baby girl Malika The assistant professor nurse education helped with retraction, fundal pressure, suture cutting, and skin closure. Presentation: Positive for Footling Breech Amniotic Membrane Rupture Type: Artificial Amniotic Fluid Description: Clear Placental Delivery Description: Manual Removal Placenta Disposition: [facility] Specimen(s) Sent to Pathology: none Cord Vessel Description: 3 Vessels Cord Entanglement: None A Gender: Male (1 minute): 8 (5 minute): 9 Delayed Cord Clamping: Yes Complications Complications: none Multi Select Codes Urinary/Genital Urinary/Genital CPT Codes: 85970 delivery+ Care([facility])
[2024-07-03] MEDS: Senna/Docusate Sodium 1 Tablet PO (13:01)
[2024-07-03] MEDS: Enoxaparin 40 MG/0.4 ML Syringe SC (19:41)
[2024-07-03] MEDS: 0.9% Saline Lock 10 ML Syringe IV (21:50)
[2024-07-04] VITALS (7 sets, daily range): BP systolic 99–125; BP diastolic 63–77; PULSE 70–90; RESP 16; TEMP 36.5–36.9; O2SAT 96–99
[2024-07-04] MEDS: Acetaminophen 500 MG Tablet 1000 MG PO ×4 (00:44→19:23)
[2024-07-04] MEDS: 0.9% Saline Lock 10 ML Syringe IV ×2 (03:37→09:13)
[2024-07-04] MEDS: Ketorolac 30 MG/ML Syringe IV (03:37)
--- NOTE | 2024-07-04 06:11 | PN.OBGYN_ITS ---
Subjective Subjective Patient doing well without complaints. Tolerating PO. Ambulating and voiding without difficulty. feeding well. Denies chest pain, shortness of breath, calf pain/swelling, fevers, chills, lightheadedness. Objective Data Objective Data Vital Signs: Vital Signs Temp Pulse Resp BP Pulse Ox O2 Del Method 97.7 F L 84 16 105/63 96 Room Air 07/04/24 03:37 07/04/24 03:37 07/04/24 03:37 07/04/24 03:37 07/04/24 03:37 07/04/24 03:37 Oxygen Delivery Method Room Air Weight: 229 lb 8.019 oz Body Mass Index (BMI) 42.0 Intake & Output: Intake and Output for Last 24 Hours 07/02/24 07/03/24 07/04/24 23:59 23:59 23:59 Intake Total 3070 / 3070 Output Total 1450 / 1450 200 / 200 Balance 1620 / 1620 -200 / -200 Lab / Micro Data 07/03/24 05:45 Labs: Laboratory Results - last 24 hr 07/03/24 05:45: WBC 8.2, RBC 3.50 L, Hgb 10.0 L, Hct 31.0 L, MCV 88.6, MCH 28.6, MCHC 32.3, RDW Std Deviation 44.1 H, RDW Coeff of Stevie 13.9, Plt Count 194, MPV 10.9, Immature Gran % (Auto) 0.700, Neut % (Auto) 71.1 H, Lymph % (Auto) 17.9 L, [place] % (Auto) 9.0, Eos % (Auto) 0.9, Baso % (Auto) 0.4, Absolute Neuts (auto) 5.9, Absolute Lymphs (auto) 1.47, Nucleated RBC % 0, Syphilis Total Ab Non- reactive, Blood Type O POSITIVE, Antibody Screen NEGATIVE ROS Constitutional Constitutional: Reports systems reviewed and no addt'l complaints, except as documented Cardiovascular Cardiovascular: Reports systems reviewed and no addt'l complaints, except as documented Respiratory/Chest Respiratory/Chest: Reports systems reviewed and no addt'l complaints, except as documented Gastrointestinal Gastrointestinal: Reports systems reviewed and no addt'l complaints, except as documented Physical Exam Const alert, oriented x3 and no apparent distress HEENT Head and Scalp: atraumatic Resp normal respiratory effort GI soft to palpation and non-tender Inspection: incision intact, healing well and drainage (none) Bimanual Exam - Vag & Uterus: uterus non-tender Uterus Palpation: uterus fundus firm (below Umbilicus) Assessment & Plan (1) Status post section: COMMENT: for breech with JV (2) Breech presentation: COMMENT: Primary section scheduled 07/03 @ 7:10 with JV PLAN: Plan s/p LTCS PPD # 1 1. routine post care 2. breast feeding- support given 3. rh positive 4. rubella immune
[2024-07-04 06:31] LABS: Hemoglobin 8.4 g/dL (12.0-15.0); Mean Corp Hgb Conc 32.3 g/dL (32-36); Mean Corpuscular Hgb 28.8 pg (27.0-32.0); Mean Platelet Vol. 10.5 fl (6.2-12.0); Platelet Count 149 K/mm3 (150-450); RBC Distribution Width CV 13.9 % (11.6-14.6); RBC Distribution Width SD 45.1 fl (35.1-43.9); Red Blood Count 2.92 M/mm3 (4.2-5.4); White Blood Count 9.7 K/mm3 (4.4-11.0)
[2024-07-04] MEDS: Enoxaparin 40 MG/0.4 ML Syringe SC ×2 (09:02→20:06)
[2024-07-04] MEDS: Senna/Docusate Sodium 1 Tablet PO (09:02)
[2024-07-04] MEDS: Ibuprofen 600 MG Tablet PO ×3 (09:02→21:06)
[2024-07-04] MEDS: oxyCODONE 5 MG Tablet PO ×3 (12:39→22:13)
[2024-07-05] MEDS: Acetaminophen 500 MG Tablet 1000 MG PO ×4 (00:40→19:51)
[2024-07-05] MEDS: oxyCODONE 5 MG Tablet PO ×2 (03:03→17:13)
[2024-07-05] MEDS: Ibuprofen 600 MG Tablet PO ×4 (03:03→20:49)
[2024-07-05 03:05] VITALS: PULSE 80; RESP 16; TEMP 36.6; O2SAT 98
[2024-07-05 07:50] VITALS: BP 119/82; PULSE 65; RESP 16; TEMP 36.4; O2SAT 98
[2024-07-05] MEDS: Enoxaparin 40 MG/0.4 ML Syringe SC ×2 (07:56→19:51)
[2024-07-05] MEDS: Senna/Docusate Sodium 1 Tablet PO (08:55)
--- NOTE | 2024-07-05 09:23 | PCM.PN.OB ---
Subjective Subjective Patient doing well without complaints. Tolerating PO. Ambulating and voiding without difficulty. feeding well. Denies chest pain, shortness of breath, calf pain/swelling, fevers, chills, lightheadedness. Objective Data Objective Data Vital Signs: Vital Signs Temp Pulse Resp BP Pulse Ox O2 Del Method 97.5 F L 65 16 119/82 H 98 Room Air 07/05/24 07:50 07/05/24 07:50 07/05/24 07:50 07/05/24 07:50 07/05/24 07:50 07/05/24 07:50 Oxygen Delivery Method Room Air Weight: 229 lb 8.019 oz Body Mass Index (BMI) 42.0 Intake & Output: Intake and Output for Last 24 Hours 07/03/24 07/04/24 07/05/24 23:59 23:59 23:59 Intake Total 3070 / 3070 Output Total 1450 / 1450 1900 / 1900 Balance 1620 / 1620 -1900 / -1900 Lab / Micro Data 07/04/24 06:19 Labs: Laboratory Results - last 24 hr 07/03/24 05:45: WBC 8.2, RBC 3.50 L, Hgb 10.0 L, Hct 31.0 L, MCV 88.6, MCH 28.6, MCHC 32.3, RDW Std Deviation 44.1 H, RDW Coeff of Stevie 13.9, Plt Count 194, MPV 10.9, Immature Gran % (Auto) 0.700, Neut % (Auto) 71.1 H, Lymph % (Auto) 17.9 L, [place] % (Auto) 9.0, Eos % (Auto) 0.9, Baso % (Auto) 0.4, Absolute Neuts (auto) 5.9, Absolute Lymphs (auto) 1.47, Nucleated RBC % 0, Syphilis Total Ab Non-reactive, Blood Type O POSITIVE, Antibody Screen NEGATIVE ROS Constitutional Constitutional: Reports systems reviewed and no addt'l complaints, except as documented Cardiovascular Cardiovascular: Reports systems reviewed and no addt'l complaints, except as documented Respiratory/Chest Respiratory/Chest: Reports systems reviewed and no addt'l complaints, except as documented Gastrointestinal Gastrointestinal: Reports systems reviewed and no addt'l complaints, except as documented Physical Exam Const alert, oriented x3 and no apparent distress HEENT Head and Scalp: atraumatic Resp normal respiratory effort GI soft to palpation and non-tender Inspection: incision intact, healing well and drainage (none) Bimanual Exam - Vag & Uterus: uterus non-tender Uterus Palpation: uterus fundus firm (below Umbilicus) Assessment & Plan (1) Status post section: COMMENT: for breech with JV (2) Breech presentation: COMMENT: Primary section scheduled 07/03 @ 7:10 with JV PLAN: Plan s/p LTCS PPD # 2 1. routine post care 2. breast feeding- support given 3. rh positive 4. rubella immune
--- NOTE | 2024-07-05 11:00 | CASEMGMT ---
Social Work Assessment Labor and Delivery Unit Patient Address: [address] [place], [place] [id number] Phone number: Date of Referral: 07/04/2024 Time of Referral: 10:28 Referred By: Gauri Juárez Date of Intervention: 07/05/2024 Time of Intervention: 11:01 Reason for Referral: Mental Health History obtained from: Medical records, mother of baby (MOB) and father of baby (FOB).? Household composition: MOBBatsheva, age 38 and daughter Malika Romano, born 07/03/2024. FOB, Austin Romano, has his own residence however plans on being actively involved in helping support the MOB and provide care for . Patient's parent/guardian status: MOB and FOB are not but have been together for over a year.? Both are actively involved and will be providing care for baby. MOB denied any concerns with domestic violence and described a positive and supportive relationship with the FOB. Medical History: -1. MOB received routine care beginning at 9 weeks and 0 days. Apgars: 8 and 9. Weight: 6 pounds, 3 ounces. Home Care Attendant: Dr. Sinclair with [facility]. Educational Status: MOB and FOB denied any issues or concerns with reading or writing. MOB reported she?s in the process of working on earning her GED and the FOB reported he attended High School through the 12th grade however never graduated. ? Financial Status: MOB and FOB reported their income is sufficient to meet the needs of their family at this time. MOB is planning on being a stay at home mom. FOB currently works outside sales executive as a concreter. ? Supplies: MOB and FOB reported they have all the supplies they need for baby at this time including but not limited to: Car Seat, bassinet, pack-n-play, crib, diapers, breast pump, bottles and clothing. Childcare/Caregiver(s):? MOB identified herself as the primary caregiver for the and the FOB is planning on helping with the care of the during the times he is not working. Transportation:? MOB and FOB reported they are both licensed drivers and have a reliable vehicle to take baby to and from all medical appointments. No transportation issues identified. Programs/Agencies Involved: RADHA ?is currently receiving her insurance/Medicaid through [employer] [facility] [employer] and is in the process of getting established with [facility]. No other agencies are involved at this time. Children Services/Legal Issues:? Denied. Behavioral Health Issues: ??Mental Health History: MOB provided a history of anxiety and ADHD and the FOB identified a history of ADD.? Both reported good management of mental health at this time. ?Substance Use History: Denied. MOB reported she and the FOB used to drink occasionally prior to getting and both stopped once the MOB became . ?Family History: Wenonah?s paternal grandfather (PGF) was described as a functioning alcoholic. MOB and FOB denied that the PGF will ever be left alone with to babyt.?? Drug Screens: ?None obtained at the time of this admission. ? Family/Social Stressors: ?MOB and FOB denied any current family or social stressors. Support Systems: Ample.? MOB and FOB identified each other as their primary supports but also identified ?s maternal grandfather (MGF) and MGF?s as well as paternal grandparents (MGP?s). Depression/Shaken Baby/Safe Sleeping: whiting can worker provided verbal and written education on PPD, Safe Sleeping and Shaken Baby.? Parents verbalized an understanding. ??? ASSESSMENT:? MOB and FOB provided consent to social work visit. Upon arrival, MOB was lying in the hospital bed and the FOB was nearby on a chair holding . whiting can worker observed positive interaction between MOB and FOB. Both were verbally engaged and cooperative.? FOB held the entire time and was observed to be very gentle with and attentive to ?s needs. MOB reported she requested to stay an extra day at the hospital due to high levels of pain from the surgery. MOB and FOB reported they are considering getting paid help for a while to help out the MOB during the time the FOB is at work. At the end of the visit, social work manager requested to speak with the MOB alone which both MOB and FOB were agreeable to.? MOB reported feeling safe at home and denied any domestic violence, drug or alcohol abuse or unmanaged mental health concerns either with herself or the FOB. Safe Plan of Care for infant related to substance use: N/A; not needed. ? PLAN:? Baby to be discharged home when ready.? whiting can worker also provided written information on depression, depression resources and Help Me Grow as additional resources offered by social work manager which MOB and FOB accepted. No other services requested or indicated. Monica Quiroz, PULP MILL TEAM LEADER, FOOD SERVICE
[2024-07-05 13:41] VITALS: BP 119/89; PULSE 82; RESP 16; TEMP 36.5; O2SAT 96
[2024-07-05] MEDS: SimETHICONE 80 MG Chewable Tablet PO (21:08)
[2024-07-05 21:24] VITALS: BP 133/83; PULSE 77; RESP 18; TEMP 36.7; O2SAT 97
[2024-07-06] MEDS: Acetaminophen 500 MG Tablet 1000 MG PO ×3 (00:53→16:14)
[2024-07-06 03:44] VITALS: BP 118/79; PULSE 88; RESP 16; TEMP 36.7
[2024-07-06] MEDS: Ibuprofen 600 MG Tablet PO ×3 (04:03→16:25)
[2024-07-06 07:54] VITALS: BP 134/93; PULSE 86; RESP 16; TEMP 36.6; O2SAT 98
--- NOTE | 2024-07-06 07:57 | PN.OBGYN_ITS ---
Subjective Subjective Patient doing well without complaints. Tolerating PO. Ambulating and voiding without difficulty. Feeding well. Denies chest pain, shortness of breath, calf pain/swelling, fevers, chills, lightheadedness. Objective Data Objective Data Vital Signs: Vital Signs Temp Pulse Resp BP Pulse Ox O2 Del Method 98.0 F 88 16 118/79 97 Room Air 07/06/24 03:44 07/06/24 03:44 07/06/24 03:44 07/06/24 03:44 07/05/24 21:24 07/06/24 03:44 Oxygen Delivery Method Room Air Weight: 229 lb 8.019 oz Body Mass Index (BMI) 42.0 Intake & Output: Intake and Output for Last 24 Hours 07/04/24 07/05/24 07/06/24 23:59 23:59 23:59 Output Total 0 / 1899 Balance -1900 / -1899 Lab / Micro Data Attestation: I reviewed the patient's lab results. 07/04/24 06:19 ROS Constitutional Constitutional: Reports systems reviewed and no addt'l complaints, except as documented; Denies anorexia or headache(s) Cardiovascular Cardiovascular: Reports systems reviewed and no addt'l complaints, except as documented; Denies dizziness, dyspnea, nausea or tachypnea Respiratory/Chest Respiratory/Chest: Reports systems reviewed and no addt'l complaints, except as documented; Denies cough, dyspnea, shortness of breath at rest or tachypnea Gastrointestinal Gastrointestinal: Reports systems reviewed and no addt'l complaints, except as documented; Denies abdominal pain, constipation or nausea Genitourinary Genitourinary: Reports systems reviewed and no addt'l complaints, except as documented; Denies burning urination, difficulty urinating, dysuria, urinary frequency or urinary incontinence Musculoskeletal Musculoskeletal: Reports systems reviewed and no addt'l complaints, except as documented Integumentary Integumentary: Reports systems reviewed and no addt'l complaints, except as documented Neurologic Neurologic: Reports systems reviewed and no addt'l complaints, except as documented; Denies abnormal speech, dizziness or headache(s) Psychiatric Psychiatric: Reports systems reviewed and no addt'l complaints, except as documented Endocrine Endocrinology: Reports systems reviewed and no addt'l complaints, except as documented Hematologic/Lymphatic Hematologic/Lymphatic: Reports systems reviewed and no addt'l complaints, except as documented Physical Exam Const alert, oriented x3 and no apparent distress Neck full ROM Resp normal respiratory effort, normal air movement and no retractions Effort and Inspection: able to speak in complete sentences and symmetric chest movement GI soft to palpation Inspection: incision intact Bladder / Kidney Exam: bladder normal to palpation Uterus Palpation: uterus fundus firm Extremity normal to inspection and full ROM Psych mental status grossly normal, thought process normal and cooperative Assessment & Plan (1) Status post section: COMMENT: for breech with JV PLAN: s/p LTCS PPD # 3 1. routine post care 2. breast feeding- support given 3. rh positive 4. rubella immune 5. Discharge home (2) Breech presentation: COMMENT: Primary section scheduled 07/03 @ 7:10 with JV (3) Anemia affecting : QUALIFIERS: Trimester: third trimester Qualified Code(s): O99.013 - Anemia complicating , third trimester COMMENT: recheck at 32 weeks and start po iron (4) Hypersensitivity disorder: QUALIFIERS: Encounter type: sequela Qualified Code(s): T78.40XS - Allergy, unspecified, sequela COMMENT: pain sensation with any abdominal touch. Difficult for her to have FHT checks (5) Obesity affecting : QUALIFIERS: Trimester: second trimester Obesity type affecting : unspecified obesity Qualified Code(s): O99.212 - Obesity complicating , second trimester COMMENT: growth at 36 weeks(EFW 34%, AC 54%) Weekly NSTat 34 wk healthy weight. early hbga1c with nob labs- NEGATIVE (6) History of PCOS: (7) ADHD: QUALIFIERS: Attention deficit-hyperactivity disorder type: u nspecified Qualified Code(s): F90.9 - Attention-deficit hyperactivity disorder, unspecified type COMMENT: non medicated. (8) Anxiety: COMMENT: controlled. (9) Advanced maternal age (AMA) in : COMMENT: low risk ntd, carrier and genetic screening. (10) Supervision of high-risk : QUALIFIERS: Trimester: second trimester Qualified Code(s): O09.92 - Supervision of high risk , unspecified, second trimester COMMENT: PRR , ROBIN 07/10/24 girl Judith/LAURA Avila (11) : QUALIFIERS: Weeks of gestation: 37 weeks Qualified Code(s): Z 3A.37 - 37 weeks gestation of COMMENT: NIPT low risk, carrier neg. , AFP:negative. nl anatomy needs fu views Charges/Coding Multi Select Codes Urinary/Genital Urinary/Genital CPT Codes: No Charge
--- NOTE | 2024-07-06 07:58 | DS.PCM_ITS ---
Providers Date of Admission: 07/03/24 Date of Discharge: 07/06/24 Primary Care Physician: No Primary Care Phys Reason For Visit: PRIMARY C SECTION Diagnosis Discharge Diagnosis (1) Status post section: Status: Acute Code(s): Z98.891 - History of uterine scar from previous surgery Plan: s/p LTCS PPD # 3 1. routine post care 2. breast feeding- support given 3. rh positive 4. rubella immune 5. Discharge home (2) Breech presentation: Status: Acute Code(s): O32.1XX0 - Maternal care for breech presentation, not applicable or unspecified (3) Anemia affecting : Status: Acute Code(s): O99.019 - Anemia complicating , unspecified trimester Qualifiers: Trimester: third trimester Qualified Code(s): O99.013 - Anemia complicating , third trimester (4) Hypersensitivity disorder: Status: Acute Code(s): T78.40XA - Allergy, unspecified, initial encounter Qualifiers: Encounter type: sequela Qualified Code(s): T78.40XS - Allergy, unspecified, sequela (5) Obesity affecting : Status: Acute Code(s): O99.210 - Obesity complicating , unspecified trimester Qualifiers: Trimester: second trimester Obesity type affecting : u nspecified obesity Qualified Code(s): O99.212 - Obesity complicating , second trimester (6) History of PCOS: Status: Acute Code(s): Z87.42 - Personal history of other diseases of the female genital tract (7) ADHD: Status: Acute Code(s): F90.9 - Attention-deficit hyperactivity disorder, unspecified type Qualifiers: Attention deficit-hyperactivity disorder type: unspecified Qualified Code(s): F90.9 - Attention-deficit hyperactivity disorder, unspecified type (8) Anxiety: Status: Acute Code(s): F41.9 - Anxiety disorder, unspecified (9) Advanced maternal age (AMA) in : Status: Acute (10) Supervision of high-risk : Status: Acute Code(s): O09.90 - Supervision of high risk , unspecified, unspecified trimester Qualifiers: Trimester: second trimester Qualified Code(s): O09.92 - Supervision of high risk , unspecified, second trimester (11) : Status: Acute Code(s): Z34.90 - Encounter for supervision of normal , unspecified, unspecified trimester Qualifiers: Weeks of gestation: 37 weeks Qualified Code(s): Z3A.37 - 37 weeks gestation of Medications at Discharge Home Medications famotidine 20 mg tablet (Pepcid) 20 mg PO BID #60 tabs 02/28/24 PNV 153-FA 400 mcg-om3 35 mg-dha 25 mg-epa 5 mg-fish oil chew tablet ( Gummies) 2 tab PO DAILY 05/18/24 ferrous sulfate 325 mg (65 mg iron) tablet (Bárbara-Time) 325 mg PO BID anemia 05/18/24 ibuprofen 800 mg tablet 800 mg PO Q8H PRN pain #30 tabs 07/03/24 oxycodone-acetaminophen 5 mg-325 mg tablet (Percocet) 1 tab PO Q4H PRN pain 7 days #20 tabs 07/03/24 Hospital Course Operations section Procedures None Summary of Care Provided Minutes Spent on Discharge: 30 Physical Exam Const alert, oriented x3 and no apparent distress Neck full ROM Resp normal respiratory effort, normal air movement and no retractions Effort and Inspection: able to speak in complete sentences and symmetric chest movement GI soft to palpation Inspection: incision intact Bladder / Kidney Exam: bladder normal to palpation Uterus Palpation: uterus fundus Extremity normal to inspection and full ROM Psych mental status grossly normal, thought process normal and cooperative Weight / BMI Weight Weight: 229 lb 8.019 oz Body Mass Index (BMI) 42.0 ABG / Lab / Microbiology Data 07/04/24 06:19 D/C Instructions Discharge Diet: No restrictions May shower in (days): 0 May resume sexual activity in: 4-6 weeks Weight Bearing Status: Full weight bearing Call your doctor if your incision/area has: Continuous Slow Oozing, Sudden Increased Bleeding, Increased Pain/ Swelling, Increased Redness and Foul Smelling Discharge Call your doctor if you observe: Fever of 101 or Higher and Using more than 1 pad per hour Suture Line Care: Avoid Pulling/Pushing and Avoid Pinching/Bending Cleanse incision/area with: Soap & Water and Keep Dressing Clean & Dry Please Follow Up With: Monica Webster DO When: Call [phone] to make an appointment for an incision check in 1-2 weeks. Meaningful Use Info Meaningful Use Meaningful Use Diagnoses (Choose all that apply): None applicable Ischemic Stroke Statin Dosing Therapy Reference: STATIN DOSE THERAPY REFERENCE: * Patients > 75 years receive moderate or high dose statin therapy. * Patients 75 years or YOUNGER should receive HIGH intensity statin dose unless contraindicated. You will be required to document reason for non-treatment if statin daily dose does not meet guidelines. HIGH DOSE STATIN THERAPY DAILY Atorvastatin > than or = to 40 mg Rosuvastatin > than or = to 20 mg Amlodipine + Atorvastatin > than or = to 2.5/40 mg Ezetimibe + Simvastatin 10/80 mg Simvastatin 80mg Discharge Plan Admission Admit Date/Time: 07/03/24 05:26 Primary Reason for Your Visit: Attending Provider: Monica Webster Primary Care Provider: Care Physician,Danyelle Primary Discharge Orders/Prescriptions Prescriptions: New ibuprofen 800 mg tablet 800 mg PO Q8H PRN (Reason: pain) Qty: 30 0RF oxycodone-acetaminophen [Percocet] 5-325 mg tablet 1 tab PO Q4H PRN (Reason: pain) 7 Days Qty: 20 0RF Rx Instructions: 1-2 tabs q 4 hrs as needed for pain Continued famotidine [Pepcid] 20 mg tablet 20 mg PO BID Qty: 60 6RF Gummies 400 mcg-35 mg- 25 mg-5 mg tablet,chewable 2 tab PO DAILY ferrous sulfate [Bárbara-Time] 325 mg (65 mg iron) tablet 325 mg PO BID Referrals / Follow Up: Care Physician,No Primary [Primary Care Provider] - Disposition Disposition (needs filled in before D/C Order can be placed): Home, Self Care Charges/Coding Multi Select Codes Urinary/Genital Urinary/Genital CPT Codes: No Charge
[2024-07-06] MEDS: Enoxaparin 40 MG/0.4 ML Syringe SC (08:00)
[2024-07-06] MEDS: Senna/Docusate Sodium 1 Tablet PO (10:01)
[2024-07-06 12:38] VITALS: BP 131/89; PULSE 78; RESP 16; TEMP 36.4; O2SAT 100
== END 2024-07-06 16:30 | disposition home or self-care (01) | DRG 540 ==
PROVIDERS: Admitting Provider Obstetrics & Gynecology; Referring Provider Obstetrics & Gynecology; Visit Provider Obstetrics & Gynecology
PROC: 10D00Z1 Extraction of Products of Conception, Low, Open Approach (ICD-10-PCS; CPT 59514; principal; 2024-07-03 07:00)
DX: O32.8XX0 Maternal care for other malpresentation of fetus, not applicable or unspecified (principal); O99.214 Obesity complicating childbirth; O99.02 Anemia complicating childbirth; Z37.0 Single live birth; O99.892 Other specified diseases and conditions complicating childbirth; R20.8 Other disturbances of skin sensation; Z3A.39 39 weeks gestation of pregnancy
CPT/HCPCS: 59050; 85025; 85027; 86780; 86850; 86900; 86901; 99221; J7120; A4216; G0378; J2405

== ENCOUNTER → 2024-08-19 | Outpatient (CLI) | payer MEDICAID, SELFPAY ==
[2024-08-27 14:10] LABS: HPV APTIMA, High Risk Negative (Negative)
== END | disposition home or self-care (01) ==
LOC: LABSPEC 10:47
PROVIDERS: Referring Provider Obstetrics & Gynecology; Visit Provider Obstetrics & Gynecology
DX: Z12.4 Encounter for screening for malignant neoplasm of cervix (principal)
CPT/HCPCS: 87624; 88175; G0145